=== PATIENT | male | born 2000 | race Caucasian/White ===

== ENCOUNTER 2021-06-26 01:55 | Emergency (ER) | payer SELFPAY ==
[~2021-06-26] VITALS: Ht 177.8 cm; Wt 70.5 kg
[2021-06-26 02:00] VITALS: TEMP 98
[2021-06-26 04:36] VITALS: BP 118/71; PULSE 88
== END 2021-06-26 04:36 | disposition home or self-care (01) ==
LOC: COL.ER 01:55
DX: S06.0X9A Concussion with loss of consciousness of unspecified duration, initial encounter (principal); W01.198A Fall on same level from slipping, tripping and stumbling with subsequent striking against other object, initial encounter